=== PATIENT | female | born 1985 | race African-American/Black ===

== ENCOUNTER 2018-04-03 08:19 | Emergency (ER) | payer OTHER ==
[~2018-04-03] VITALS: Ht 167.6 cm; Wt 68.0 kg
[2018-04-03] MEDS ORDERED: HYDROCODONE/ACETAMINOPHEN 5/325MG TABLET PO ONE (10:00)
[2018-04-03 11:00] VITALS: BP 98/60
== END 2018-04-03 11:14 | disposition home or self-care (01) ==
LOC: ER 08:19
DX: K08.89 Other specified disorders of teeth and supporting structures (principal); F17.210 Nicotine dependence, cigarettes, uncomplicated
CPT/HCPCS: 99283

== ENCOUNTER 2018-10-18 12:30 | Emergency (ER) | payer OTHER ==
[~2018-10-18] VITALS: Ht 167.6 cm; Wt 65.0 kg
[2018-10-18 13:05] VITALS: BP 101/64
== END 2018-10-18 21:05 | disposition left against medical advice (07) ==
LOC: ER 12:30
DX: Z53.21 Procedure and treatment not carried out due to patient leaving prior to being seen by health care provider (principal); F17.200 Nicotine dependence, unspecified, uncomplicated; R56.9 Unspecified convulsions